=== PATIENT | male | born 1995 | race Caucasian/White ===

== ENCOUNTER 2016-05-08 05:12 | Emergency (ER) | payer SELFPAY ==
[2016-05-08 05:17] VITALS: BMI 26.4
[2016-05-08 05:22] VITALS: BP 108/42; PULSE 71; RESP 20; TEMP 97.6; O2SAT 96
[2016-05-08] MEDS ORDERED: Albuterol-Ipratrop 3 mg / 0.5 (3 ml) UD IH STA (05:23)
--- NOTE | 2016-05-08 05:24 | ED PDOC ---
Arrival/HPI - General Chief Complaint: Chest Pain Time Seen by Provider: 05/08/16 05:13 Historian: Patient - History of Present Illness Narrative History of Present Illness (Text): 05/08/16 05:26 Saeid Spear is a 20 year old male, with a history of asthma, presents to the emergency department for evaluation of chest tightness which is similar in quality to pervious asthmatic symptoms. Notes that symptoms presented earlier today in the middle of the night. Patient ran out of breathing treatments and did not take any as a result. Also reports of mild rhinorrhea and cough. Denies fever, chills, headache, shortness of breath, nausea, vomiting, urinary symptoms or any other complaints at this time. Time/Duration: 4-6 hours Symptom Onset: Gradual Symptom Course: Unchanged Severity Level: Mild Activities at Onset: Light Context: Home Past Medical History - Provider Review Nursing Documentation Reviewed: Yes - Past History Past History: Non-Contributing - Infectious Disease Hx of Infectious Diseases: None - Tetanus Immunization Tetanus Immunization: Unknown - Past Medical History Past Medical History: No Previous - Cardiac Hx Cardiac Disorders: No - Pulmonary Hx Asthma: Yes - Endocrine/Metabolic Hx Endocrine Disorders: No - Gastrointestinal Hx Gastrointestinal Disorders: No - Psychiatric Hx Depression: No Hx Emotional Abuse: No Hx Physical Abuse: No Hx Substance Use: Yes (daily) - Past Surgical History Past Surgical History: No Previous - Anesthesia Hx Anesthesia: Yes Hx Anesthesia Reactions: No Hx Malignant Hyperthermia: No - Suicidal Assessment Feels Threatened In Home Enviroment: No Family/Social History - Physician Review Nursing Documentation Reviewed: Yes Family/Social History: No Known Family HX Smoking Status: Heavy Smoker > 10 Cigarettes Daily Hx Alcohol Use: Yes Frequency of alcohol use: Socially Hx Substance Use: Yes (daily) Substance used: marijuana Allergies/Home Meds Allergies/Adverse Reactions: Allergies No Known Allergies Allergy (Verified 09/13/15 16:54) Review of Systems - Physician Review All systems were reviewed & negative as marked: Yes - Review of Systems Constitutional: Normal. absent: Fatigue, Fevers Respiratory: Cough. absent: SOB, Sputum Cardiovascular: Chest Pain (chest tightness ) Gastrointestinal: Normal. absent: Abdominal Pain, Diarrhea, Nausea, Vomiting Neurological: Normal. absent: Headache, Dizziness Psychiatric: Normal Physical Exam - Physical Exam Narrative Physical Exam (Text): Constitutional: No acute distress. Head: Normocephalic. Atraumatic. Eyes: PERRL. ENT: Moist mucous membranes. Neck: Supple. Cardiovascular: Regular rate. Chest: No tenderness. Respiratory: Wheezing diffusely. No crackles or ronchi. No focal findings. GI: Soft. Nontender. Nondistended. Back: No CVA tenderness. Musculoskeletal: No tenderness or swelling of extremities. Skin: No rash. Neurologic: Alert, no focal deficit. Vital Signs Reviewed: Yes Vital Signs Temp Pulse Resp BP Pulse Ox 05/08/16 05:21 97.6 F 71 20 108/42 L 96 Temperature: Afebrile Blood Pressure: Normal Pulse: Regular Respiratory Rate: Normal Appearance: Positive for: Well-Appearing, Non-Toxic, Comfortable Pain Distress: None Mental Status: Positive for: Alert and Oriented X 3 Medical Decision Making ED Course and Treatment: 05/08/16 05:32 Impression: A 20 year old male presents to emergency department for evaluation of chest tightness which is similar in quality to asthmatic symptoms. Plan: -- Duoneb -- Prednisone -- Reassess and disposition Progress Notes: 05/08/16 05:33 Patient states that breathing has improved markedly post treatment. Patient is stable for discharge home. Advised to present back to emergency department for worsening symptoms and follow up with PMD with in few days. - Medication Orders Current Medication Orders: Discontinued Medications Albuterol/Ipratropium (Duoneb 3 Mg/0.5 Mg (3 Ml) Ud) 3 ml IH STAT STA Stop: 05/08/16 05:24 Last Admin: 05/08/16 05:26 Dose: 3 ML Prednisone (Prednisone Tab) 60 mg PO STAT ONE Stop: 05/08/16 05:24 Last Admin: 05/08/16 05:38 Dose: 60 MG - Scribe Statement The provider has reviewed the documentation as recorded by the Sherice Hays Provider Attestation: All medical record entries made by the Sherice were at my direction and personally dictated by me. I have reviewed the chart and agree that the record accurately reflects my personal performance of the history, physical exam, medical decision making, and the department course for this patient. I have also personally directed, reviewed, and agree with the discharge instructions and disposition. Disposition/Present on Arrival - Present on Arrival Any Indicators Present on Arrival: No History of DVT/PE: No History of Uncontrolled Diabetes: No Urinary Catheter: No History of Decub. Ulcer: No History Surgical Site Infection Following: None - Disposition Have Diagnosis and Disposition been Completed?: Yes Diagnosis: Asthma Disposition: HOME/ ROUTINE Disposition Time: 05:24 Patient Plan: Discharge Condition: STABLE Discharge Instructions (ExitCare): Asthma (ED) Prescriptions: Albuterol 0.083% [Albuterol Sulfate 3 Ml] 3 ml IH Q4 #150 neb Prednisone [Deltasone] 3 tab PO DAILY #12 tablet Albuterol HFA [Ventolin HFA 90 mcg/actuation (8 g)] 2 puff IH Q6 #1 inhaler Forms: WORK NOTE
--- NOTE | 2016-05-08 14:18 | CARD ---
APPROVED REPORT EKG Measurement Heart [id number] <Conclusion> Sinus bradycardia Otherwise normal ECG
== END 2016-05-08 05:39 | disposition home or self-care (01) ==
LOC: ED 05:12
DX: J45.909 Unspecified asthma, uncomplicated (principal); F17.210 Nicotine dependence, cigarettes, uncomplicated

== ENCOUNTER 2016-06-07 23:20 | Emergency (ER) | payer SELFPAY ==
[2016-06-07 23:34] VITALS: BMI 25.7
[2016-06-07 23:36] VITALS: TEMP 99
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
[2016-06-08 00:53] VITALS: BP 122/68; PULSE 78; RESP 18; O2SAT 95
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
== END 2016-06-08 01:00 | disposition home or self-care (01) ==
LOC: ED 23:20
DX: S63.612A Unspecified sprain of right middle finger, initial encounter (principal); X58.XXXA Exposure to other specified factors, initial encounter; Y93.67 Activity, basketball

== ENCOUNTER 2016-09-03 22:12 | Emergency (ER) | payer SELFPAY ==
[2016-09-03 22:12] VITALS: BMI 25.7
[2016-09-03 22:36] VITALS: BP 127/52; PULSE 65; RESP 18; TEMP 100; O2SAT 96
[2016-09-03] MEDS ORDERED: TDAP Vaccine 0.5 mL Syr IM ONE (22:58)
[2016-09-03] MEDS ORDERED: Bacitracin 500 Units/gm Oint Foilpak UD TOP ONE (22:58)
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
== END 2016-09-04 01:09 | disposition home or self-care (01) ==
LOC: ED 22:12
DX: S00.83XA Contusion of other part of head, initial encounter (principal); S50.01XA Contusion of right elbow, initial encounter; Y08.89XA Assault by other specified means, initial encounter; Y93.01 Activity, walking, marching and hiking; Y92.488 Other paved roadways as the place of occurrence of the external cause; Z23 Encounter for immunization

== ENCOUNTER 2016-11-28 03:29 | Observation (INO) | payer SELFPAY ==
[2016-11-28 03:38] VITALS: TEMP 98.2
[2016-11-28] MEDS ORDERED: Sodium Chloride 0.9% 1,000 ML IV STA (03:48)
--- NOTE | 2016-11-28 03:52 | ED PDOC ---
Arrival/HPI - General Chief Complaint: Abdominal Pain Time Seen by Provider: 11/28/16 03:31 Historian: Patient - History of Present Illness Narrative History of Present Illness (Text): 11/28/16 03:48 Saeid Spear is a 21 year old male, whose past medical history includes asthma, who presents to the Emergency department complaining of chest pain since yesterday evening. Patient states chest pain is worse with deep inspiration. Patient also complaining of lower abdominal pain. Patient denies any fever, chills, shortness of breath, nausea, vomiting, diarrhea, urinary symptoms, back pain, neck pain, headache, dizziness, or any other complaints. Time/Duration: Other (yesterday evening) Symptom Onset: Gradual Symptom Course: Unchanged Activities at Onset: Light Context: Home Past Medical History - Provider Review Nursing Documentation Reviewed: Yes - Past History Past History: Non-Contributing - Infectious Disease Hx of Infectious Diseases: None - Tetanus Immunization Tetanus Immunization: Unknown - Past Medical History Past Medical History: No Previous - Cardiac Hx Cardiac Disorders: No - Pulmonary Hx Respiratory Disorders: Yes Hx Asthma: Yes - Neurological Hx Neurological Disorder: No - HEENT Hx HEENT Disorder: No - Renal Hx Renal Disorder: No - Endocrine/Metabolic Hx Endocrine Disorders: No - Hematological/Oncological Hx Blood Disorders: No - Integumentary Hx Dermatological Disorder: No - Musculoskeletal/Rheumatological Hx Musculoskeletal Disorders: No - Gastrointestinal Hx Gastrointestinal Disorders: No - Genitourinary/Gynecological Hx Genitourinary Disorders: No - Psychiatric Hx Psychophysiologic Disorder: No Hx Substance Use: Yes - Past Surgical History Past Surgical History: No Previous - Anesthesia Hx Anesthesia: Yes Hx Anesthesia Reactions: No Hx Malignant Hyperthermia: No - Suicidal Assessment Feels Threatened In Home Enviroment: No Family/Social History - Physician Review Nursing Documentation Reviewed: Yes Family/Social History: Unknown Family HX Smoking Status: Heavy Smoker > 10 Cigarettes Daily Hx Alcohol Use: Yes Hx Substance Use: Yes Substance used: marijuana Allergies/Home Meds Allergies/Adverse Reactions: Allergies No Known Allergies Allergy (Verified 11/28/16 03:38) Home Medications: Home Meds Medication Instructions Recorded Confirmed Albuterol HFA [Ventolin HFA 90 2 puff IH Q6 PRN 11/28/16 11/28/16 mcg/actuation (8 g)] Review of Systems - Physician Review All systems were reviewed & negative as marked: Yes - Review of Systems Constitutional: Normal. absent: Fevers Eyes: Normal ENT: Normal Respiratory: Normal. absent: SOB, Cough Cardiovascular: Chest Pain Gastrointestinal: Abdominal Pain. absent: Diarrhea, Nausea, Vomiting Genitourinary Male: Normal. absent: Dysuria, Frequency, Hematuria, Urinary Output Changes Musculoskeletal: Normal. absent: Back Pain, Neck Pain Skin: Normal. absent: Rash Neurological: Normal. absent: Headache, Dizziness Endocrine: Normal Hemo/Lymphatic: Normal Psychiatric: Normal Physical Exam Vital Signs Reviewed: Yes Vital Signs Temp Pulse Resp BP Pulse Ox 11/28/16 08:00 41 L 18 117/51 L 99 11/28/16 06:51 40 L 17 98/60 L 100 11/28/16 05:37 37 L 16 86/37 L 99 11/28/16 03:35 98.2 F 49 L 23 113/66 97 Temperature: Afebrile Blood Pressure: Normal Pulse: Regular Respiratory Rate: Normal Appearance: Positive for: Well-Appearing, Non-Toxic, Comfortable Pain Distress: None Mental Status: Positive for: Alert and Oriented X 3 - Systems Exam Head: Present: Atraumatic, Normocephalic Pupils: Present: PERRL Extroacular Muscles: Present: EOMI Conjunctiva: Present: Normal Mouth: Present: Moist Mucous Membranes Neck: Present: Normal Range of Motion Respiratory/Chest: Present: Clear to Auscultation, Good Air Exchange. No: Respiratory Distress, Accessory Muscle Use Cardiovascular: Present: Regular Rate and Rhythm, Normal S1, S2. No: Murmurs Abdomen: Present: Normal Bowel Sounds. No: Tenderness, Distention, Peritoneal Signs Back: Present: Normal Inspection Upper Extremity: Present: Normal Inspection. No: Cyanosis, Edema Lower Extremity: Present: Normal Inspection. No: Edema Neurological: Present: GCS=15, CN II-XII Intact, Speech Normal Skin: Present: Warm, Dry, Normal Color. No: Rashes Psychiatric: Present: Alert, Oriented x 3, Normal Insight, Normal Concentration Medical Decision Making ED Course and Treatment: 11/28/16 03:48 Impression: 21 year old male complaining of chest pain and lower abdominal pain. Plan: -- CT Abdomen and Pelvis w/o contrast -- EKG -- CXR -- Labs, cardiac enzymes, amylase, lipase -- Urinalysis, urine drug screen -- IV fluids -- Reassess and disposition Progress Notes: Reviewed EKG, sinus bradycardia at 47 bpm. Sinus arrhythmia. No acute changes. Reviewed radiology, CXR shows no acute processes. 11/28/16 06:[address] scans, CT Chest shows: Normal chest CT with IV contrast. CT Abdomen and Pelvis shows: No acute inflammatory/infectious process identified in the abdomen or pelvis. No evidence of bowel obstruction. Minimal fluid in the pelvis. case discussed with dr janet ahn accepts case for remote tele 12/01/16 20:12 12/01/16 20:12 - Lab Interpretations Lab Results: 11/28/16 04:00 11/28/16 04:00 Lab Results 11/28/16 04:00: Urine Opiates Screen Negative, Urine Methadone Screen Negative, Ur Barbiturates Screen Negative, Ur Phencyclidine Scrn Negative, Ur Amphetamines Screen Negative, U Benzodiazepines Scrn Negative, U Oth Cocaine Metabols Negative, U Cannabinoids Screen Positive H 11/28/16 04:00: Sodium 143, Potassium 4.5, Chloride 110 H, Carbon Dioxide 27, Anion Gap 11, BUN 11, Creatinine 1.2, Est GFR ( Amer) > 60, Est GFR (Non- Af Amer) > 60, Random Glucose 94, Calcium 8.8, Total Bilirubin 0.9, AST 32, ALT 32, Alkaline Phosphatase 84, Lactate Dehydrogenase 433, Total Creatine Kinase 301 H, CK-MB (CK-2) 1.7, CK-MB (CK-2) % Cancelled, Troponin I < 0.01, Total Protein 6.3, Albumin 4.0, Globulin 2.3, Albumin/Globulin Ratio 1.7, Amylase 147 H, Lipase 868 H 11/28/16 04:00: Urine Color Yellow, Urine Appearance Sl cloudy, Urine pH 6.0, Ur Specific [place] 1.025, Urine Protein Trace H, Urine Glucose (UA) Negative, Urine Ketones Trace H, Urine Blood Negative, Urine Nitrate Negative, Urine Bilirubin Negative, Urine Urobilinogen 1.0 H, Ur Leukocyte Esterase Negative, Urine RBC 0 - 2, Urine WBC 0 - 2, Ur Epithelial Cells 0 - 2, Urine Bacteria Occ 11/28/16 04:00: WBC 6.3, RBC 4.52, Hgb 14.3, Hct 42.3, MCV 93.6, MCH 31.6, MCHC 33.8, RDW 14.5, Plt Count 162, MPV 9.9, Gran % 60.1, Lymph % (Auto) 31.2, [place] % (Auto) 6.2 H, Eos % (Auto) 2.2, Baso % (Auto) 0.3, Gran # 3.80, Lymph # 2.0, [place] # 0.4, Eos # 0.1, Baso # 0.02 I have reviewed the lab results: Yes - RAD Interpretation Narrative RAD Interpretations (Text): CT Chest shows: Lungs: There is no pneumonia or mass. The trachea and major bronchi are unremarkable. Pleura: No pleural effusion. No pneumothorax. Heart: Heart size is normal. There is no pericardial effusion. Lynnette and mediastinum: There is no mass or adenopathy. Pulmonary vasculature: Unremarkable. No obvious pulmonary embolism. Thoracic aorta/vascular: No thoracic aortic aneurysm or dissection. The imaged portions of the brachiocephalic arteries are unremarkable. Imaged upper abdomen: See accompanying abdomen pelvis CT report. Musculoskeletal system: Unremarkable Chest/body wall soft tissues: Unremarkable Thyroid: Unremarkable IMPRESSION: Normal chest CT with IV contrast. CT Abdomen and Pelvis shows: LOWER THORAX: See accompanying chest CT report. ABDOMEN: LIVER: Unremarkable. No mass or other parenchymal abnormality. GALLBLADDER AND BILE DUCTS: Unremarkable. No calcified stones. No intra- or extrahepatic biliary dilation. PANCREAS: Unremarkable. No mass. No ductal dilation. SPLEEN: Unremarkable. No splenomegaly. ADRENALS: Unremarkable. No mass. KIDNEYS AND URETERS: Unremarkable. No hydroureteronephrosis. No solid mass or cyst. No urinary tract calculi. STOMACH AND BOWEL: Unremarkable. No obstruction. No wall thickening. APPENDIX: Normal, no findings to suggest acute appendicitis. PELVIS: BLADDER: Unremarkable. No obvious mass. REPRODUCTIVE: Unremarkable as visualized. ABDOMEN and PELVIS: INTRAPERITONEAL SPACE: There is minimal nonspecific fluid in the pelvis. There is otherwise no ascites. No abscess. No pneumoperitoneum. BONES/JOINTS: Unremarkable. SOFT TISSUES: Unremarkable. VASCULATURE: Unremarkable. No abdominal aortic aneurysm or dissection. LYMPH NODES: Unremarkable. No pathologically enlarged lymph nodes. IMPRESSION: No acute inflammatory/infectious process identified in the abdomen or pelvis. No evidence of bowel obstruction. Minimal fluid in the pelvis. Radiology Orders: 11/28/16 03:50 CHEST TWO VIEWS (PA/LAT) [RAD] Stat 11/28/16 04:24 CHEST,ABD,PEL W/IV CONT ONLY [CT] Stat Licensed Mortician: ED Physician, Radiologist - EKG Interpretation Interpreted by ED Physician: Yes Type: 12 lead EKG - Medication Orders Current Medication Orders: Discontinued Medications Albuterol (Ventolin Hfa 90 Mcg/Actuation (8 G)) 2 puff IH Q6 PRN PRN Reason: Shortness of Breath Albuterol Sulfate (Albuterol 0.083% Inhal Ni (2.5 Mg/3 Ml) Ud) 2.5 mg IH [id number] PRN PRN Reason: SHORTNESS OF BREATH Sodium Chloride (Sodium Chloride 0.9%) 1,000 mls @ 100 mls/hr IV .Q10H STA Stop: 11/28/16 13:47 Last Admin: 11/28/16 04:00 Dose: 100 mls/hr eMAR Start Stop Document 11/28/16 04:00 ND (Rec: 11/28/16 04:44 [place] [facility] [id number] Intravenous Solution Start Date 11/28/16 Start Time 04:00 End Date 11/28/16 End time 05:45 Total Infusion Time 105 Sodium Chloride (Sodium Chloride 0.9%) 1,000 mls @ 1,000 mls/hr IV .Q1H MEL Last Admin: 11/28/16 05:59 Dose: 1,000 mls/hr eMAR Start Stop Document 11/28/16 05:59 ND (Rec: 11/28/16 05:59 ND [facility] [id number] Intravenous Solution Start Date 11/28/16 Start Time 05:59 End Date 11/28/16 End time 06:59 Total Infusion Time 60 Lactated Ringer's (Lactated Ringer's) 1,000 mls @ 250 mls/hr IV .Q4H MEL Last Admin: 11/28/16 10:28 Dose: 250 mls/hr eMAR Start Stop Document 11/28/16 10:28 RV (Rec: 11/28/16 10:28 RV [id number]) Intravenous Solution Start Date 11/28/16 Start Time 08:00 Nicotine (Nicoderm Cq) 1 patch TD DAILY MEL Last Admin: 11/28/16 10:28 Dose: Not Given Non-Admin Reason: Patient Refused MAR Transdermal Patch Site Document 11/28/16 10:28 RV (Rec: 11/28/16 10:28 RV [id number]) Transdermal Patch Site Transdermal Patch Site Right Shoulder - Scribe Statement The provider has reviewed the documentation as recorded by the Scribscarlet Mccoy All medical record entries made by the Scribe were at my direction and personally dictated by me. I have reviewed the chart and agree that the record accurately reflects my personal performance of the history, physical exam, medical decision making, and the department course for this patient. I have also personally directed, reviewed, and agree with the discharge instructions and disposition. Disposition/Present on Arrival - Present on Arrival Any Indicators Present on Arrival: No History of DVT/PE: No History of Uncontrolled Diabetes: No Urinary Catheter: No History of Decub. Ulcer: No History Surgical Site Infection Following: None - Disposition Have Diagnosis and Disposition been Completed?: Yes Diagnosis: Pancreatitis, Bradycardia Disposition: HOSPITALIZED Disposition Time: 07:20 Condition: GOOD
[2016-11-28 04:15] LABS: BASO # 0.02 K/mm3 (0.0-2.0); BASO % 0.3 % (0.0-3.0); EOS # 0.1 (0.0-0.7); EOS % 2.2 % (1.5-5.0); GRAN # 3.8 (1.4-6.5); GRAN % 60.1 % (50.0-68.0); HEMATOCRIT 42.3 % (42.0-52.0); LYMPH % 31.2 % (22.0-35.0); MEAN CELL VOLUME 93.6 fl (80.0-105.0); MEAN CORPUSCULAR HEMOGLOBIN 31.6 pg (25.0-35.0); MEAN CORPUSCULAR HGB CONC 33.8 g/dl (31.0-37.0); MEAN PLATELET VOLUME 9.9 fl (7.0-11.0); MONO # 0.4 (0.1-0.6); MONO % 6.2 % (1.0-6.0); RED CELL DISTRIBUTION WIDTH 14.5 % (11.5-14.5); WHITE BLOOD COUNT 6.3 10^3/ul (4.5-11.0)
[2016-11-28 04:25] LABS: ALB/GLOB RATIO 1.7 (1.1-1.8); ALKALINE PHOSPHATASE 84 U/L (38-126); ALT/SGPT 32 U/L (7-56); AMYLASE 147 U/L (35-125); AST/SGOT 32 U/L (17-59); BILIRUBIN,TOTAL 0.9 mg/dL (0.2-1.3); BLOOD UREA NITROGEN 11 mg/dL (7-21); CALCIUM 8.8 mg/dL (8.4-10.5); CARBON DIOXIDE 27 mmol/L (21-33); CHLORIDE 110 mmol/L (98-107); GFR AFRICAN-AMERICAN > 60; GLUCOSE,RANDOM 94 mg/dL (70-110); LIPASE 868 U/L (23-300); POTASSIUM 4.5 mmol/L (3.6-5.0); SODIUM 143 mmol/L (132-148); TOTAL PROTEIN 6.3 g/dL (5.8-8.3)
[2016-11-28 04:32] LABS: URINE BILIRUBIN NEGATIVE (NEGATIVE); URINE BLOOD NEGATIVE (NEGATIVE); URINE GLUCOSE (UA) NEGATIVE (NEGATIVE); URINE KETONE TRACE mg/dL (NEGATIVE); URINE LEUKOCYTE ESTERASE NEGATIVE Leu/uL (NEGATIVE); URINE PROTEIN TRACE mg/dL (<30 mg/dL)
[2016-11-28 04:41] LABS: TROPONIN I < 0.01 ng/mL
[2016-11-28] MEDS ORDERED: Iohexol 350 MG/100 ML VIAL ONE (04:44)
[2016-11-28 04:52] LABS: URINE APPEARANCE SL CLOUDY (CLEAR); URINE COLOR YELLOW (YELLOW)
[2016-11-28 04:55] LABS: URINE EPITHELIAL CELLS 0 - 2 /hpf (0-5); URINE RBC 0 - 2 /hpf (0-2); URINE WBC 0 - 2 /hpf (0-6)
[2016-11-28 04:56] LABS: URINE BACTERIA OCC (NEG)
[2016-11-28] MEDS ORDERED: Sodium Chloride 0.9% 1,000 ML IV SCH (06:00)
[2016-11-28] MEDS ORDERED: Albuterol HFA 90 mcg/actuation (8 g) IH PRN (07:19)
[2016-11-28] MEDS ORDERED: Lactated Ringer's 1,000 ML IV SCH (07:30)
[2016-11-28] MEDS ORDERED: Albuterol 0.083% Inhal Sol (2.5 mg/3 mL) UD IH PRN (07:40)
--- NOTE | 2016-11-28 09:52 | CP.PCM.HP ---
<Gordy Jorgensen - Last Filed: 11/28/16 09:47> History of Present Illness - History of Present Illness History of Present Illness: cc: chest pain HPI: 21yo male with history of asthma presents c/o left-sided chest pain. Patient reported that the chest pain started at 12am and was non-radiating, sharp in nature and 4/10 in severity. Reported that he couldn't sleep as a result and decided to come to the emergency room for evaluation. Reported no alleviating or exaerbating symptoms and stated that the pain subsided quickly. On arrival, EKG revealed sinus bradycardia with no acute ST-T wave changes. On examination, he denied chest pain, palpitations, SOB, abdominal pain, nausea, vomiting, fever, chills, cough, focal weakness, numbness, tingling. 12point ROS as per HPI above, otherwise negative PMH: asthma PSH: denies Allergies: NKDA Social Hx: Admits to marijuana and tobacco use (6-7 cigarettes per day for 8yrs) ; occasional alcohol use with reported last drink one week ago Family Hx: Denies Present on Admission - Present on Admission Any Indicators Present on Admission: No Past Patient History - Infectious Disease Hx of Infectious Diseases: None - Tetanus Immunizations Tetanus Immunization: Unknown - Past Social History Smoking Status: Heavy Smoker > 10 Cigarettes Daily - CARDIAC Hx Cardiac Disorders: No - PULMONARY Hx Respiratory Disorders: Yes Hx Asthma: Yes - NEUROLOGICAL Hx Neurological Disorder: No - HEENT Hx HEENT Problems: No - RENAL Hx Chronic Kidney Disease: No - ENDOCRINE/METABOLIC Hx Endocrine Disorders: No - HEMATOLOGICAL/ONCOLOGICAL Hx Blood Disorders: No - INTEGUMENTARY Hx Dermatological Problems: No - MUSCULOSKELETAL/RHEUMATOLOGICAL Hx Musculoskeletal Disorders: No - GASTROINTESTINAL Hx Gastrointestinal Disorders: No - GENITOURINARY/GYNECOLOGICAL Hx Genitourinary Disorders: No - PSYCHIATRIC Hx Psychophysiologic Disorder: No Hx Substance Use: Yes - SURGICAL HISTORY Hx Surgeries: No - ANESTHESIA Hx Anesthesia: Yes Hx Anesthesia Reactions: No Hx Malignant Hyperthermia: No Meds Allergies/Adverse Reactions: Allergies Allergy/AdvReac Type Severity Reaction Status Date / Time No Known Allergies Allergy Verified 11/28/16 03:38 Physical Exam - Constitutional Appears: Non-toxic, No Acute Distress - Head Exam Head Exam: ATRAUMATIC, NORMAL INSPECTION, NORMOCEPHALIC - Eye Exam Eye Exam: EOMI, PERRL - ENT Exam ENT Exam: Mucous Membranes Moist - Respiratory Exam Respiratory Exam: Clear to Auscultation Bilateral. absent: Rales, Rhonchi, Wheezes - Cardiovascular Exam Cardiovascular Exam: RRR, +S1, +S2. absent: Gallop, JVD, Rubs - GI/Abdominal Exam GI & Abdominal Exam: Normal Bowel Sounds, Soft. absent: Distended, Firm, Guarding, Rebound, Rigid, Tenderness - Extremities Exam Extremities exam: Positive for: normal inspection, pedal pulses present. Negative for: pedal edema, tenderness - Back Exam Back exam: NORMAL INSPECTION - Neurological Exam Neurological exam: Alert, CN II-XII Intact, Oriented x3 - Psychiatric Exam Psychiatric exam: Normal Affect, Normal Mood - Skin Skin Exam: Dry, Intact, Normal Color, Warm Results - Vital Signs Recent Vital Signs: Last Vital Signs Temp 98.2 F 11/28/16 03:35 Pulse 40 L 11/28/16 06:51 Resp 17 11/28/16 06:51 BP 98/60 L 11/28/16 06:51 Pulse Ox 100 11/28/16 06:51 - Labs Result Diagrams: 11/28/16 04:00 11/28/16 04:00 Labs: Laboratory Results - last 24 hr 11/28/16 10:00 Troponin I < 0.01 Assessment & Plan - Assessment and Plan (Free Text) Plan: 21yo male with history of asthma presents c/o chest pain 1. Chest pain 2. Elevated lipase 3. Asthma -EKG reviewed; revealed sinus bradycardia with no acute ST-T wave changes -CT Chest/abdomen/pelvis revealed no acute abnormalities; see official report for further details -Troponin negative x 2 -IVF hydration -Cardiology consulted - Dr. Butterfield -Telemetry monitoring -Continue albuterol for history of asthma Patient seen and case discussed with attending, Dr. Caldwell - Date & Time Date: 11/28/16 Time: 09:53 <Aly Caldwell - Last Filed: 11/28/16 12:50> Results - Vital Signs Recent Vital Signs: Last Vital Signs Temp 98.2 F 11/28/16 11:07 Pulse 40 L 11/28/16 11:07 Resp 18 11/28/16 11:07 BP 117/51 L 11/28/16 11:07 Pulse Ox 99 11/28/16 08:00 - Labs Result Diagrams: 11/28/16 04:00 11/28/16 04:00 Labs: Laboratory Results - last 24 hr 11/28/16 11/28/16 09:20 10:00 Troponin I < 0.01 TSH 3rd Generation 2.22 Attending/Attestation - Attestation I have personally seen and examined this patient.: Yes I have fully participated in the care of the patient.: Yes I have reviewed all pertinent clinical information: Yes Notes (Text): 11/28/16 12:46 Patient was seen and examined . 21 yrs old male with PMH of Asthma is admitted with atypical chest pain, EKG is negative for ischemic changes. 2 set of troponins are normal. Patient is not having any wheezing. Lipase is mildly high but patient is not having any abdominal pain, CT scan of abdomen and pevis is negative for Pancreatitis. Discuss with cardiology Patient does not need any further work up at this time. The issue of smoking and ongoing drug abuse was discussed. Education was provided.
--- NOTE | 2016-11-28 09:57 | CP.PCM.DIS ---
<Gordy Jorgensen - Last Filed: 11/28/16 11:47> Provider - Provider Date of Admission: 11/28/16 06:35 Attending physician: Etienne Valentine MD Consults: Cardiology - Dr. Butterfield Time Spent in preparation of Discharge (in minutes): 25 Hospital Course - Lab Results Lab Results: Most Recent Lab Values WBC 6.3 10^3/ul (4.5-11.0) 11/28/16 04:00 RBC 4.52 10^6/uL (3.5-6.1) 11/28/16 04:00 Hgb 14.3 g/dL (14.0-18.0) 11/28/16 04:00 Hct 42.3 % (42.0-52.0) 11/28/16 04:00 MCV 93.6 fl (80.0-105.0) 11/28/16 04:00 MCH 31.6 pg (25.0-35.0) 11/28/16 04:00 MCHC 33.8 g/dl (31.0-37.0) 11/28/16 04:00 RDW 14.5 % (11.5-14.5) 11/28/16 04:00 Plt Count 162 10^3/uL (120.0-450.0) 11/28/16 04:00 MPV 9.9 fl (7.0-11.0) 11/28/16 04:00 Gran % 60.1 % (50.0-68.0) 11/28/16 04:00 Lymph % (Auto) 31.2 % (22.0-35.0) 11/28/16 04:00 [place] % (Auto) 6.2 % (1.0-6.0) H 11/28/16 04:00 Eos % (Auto) 2.2 % (1.5-5.0) 11/28/16 04:00 Baso % (Auto) 0.3 % (0.0-3.0) 11/28/16 04:00 Gran # 3.80 (1.4-6.5) 11/28/16 04:00 Lymph # 2.0 (1.2-3.4) 11/28/16 04:00 [place] # 0.4 (0.1-0.6) 11/28/16 04:00 Eos # 0.1 (0.0-0.7) 11/28/16 04:00 Baso # 0.02 K/mm3 (0.0-2.0) 11/28/16 04:00 Sodium 143 mmol/L (132-148) 11/28/16 04:00 Potassium 4.5 mmol/L (3.6-5.0) 11/28/16 04:00 Chloride 110 mmol/L (98-107) H 11/28/16 04:00 Carbon Dioxide 27 mmol/L (21-33) 11/28/16 04:00 Anion Gap 11 (10-20) 11/28/16 04:00 BUN 11 mg/dL (7-21) 11/28/16 04:00 Creatinine 1.2 mg/dL (0.8-1.5) 11/28/16 04:00 Est GFR ( Amer) > 60 11/28/16 04:00 Est GFR (Non-Af Amer) > 60 11/28/16 04:00 Random Glucose 94 mg/dL (70-110) 11/28/16 04:00 Calcium 8.8 mg/dL (8.4-10.5) 11/28/16 04:00 Total Bilirubin 0.9 mg/dL (0.2-1.3) 11/28/16 04:00 AST 32 U/L (17-59) 11/28/16 04:00 ALT 32 U/L (7-56) 11/28/16 04:00 Alkaline Phosphatase 84 U/L (38-126) 11/28/16 04:00 Lactate Dehydrogenase 433 U/L (333-699) 11/28/16 04:00 Total Creatine Kinase 301 U/L (35-230) H 11/28/16 04:00 CK-MB (CK-2) 1.7 ng/mL (0.0-3.6) 11/28/16 04:00 CK-MB (CK-2) % Cancelled 11/28/16 04:00 Troponin I < 0.01 ng/mL 11/28/16 10:00 Total Protein 6.3 g/dL (5.8-8.3) 11/28/16 04:00 Albumin 4.0 g/dL (3.0-4.8) 11/28/16 04:00 Globulin 2.3 gm/dL 11/28/16 04:00 Albumin/Globulin Ratio 1.7 (1.1-1.8) 11/28/16 04:00 Amylase 147 U/L (35-125) H 11/28/16 04:00 Lipase 868 U/L (23-300) H 11/28/16 04:00 Urine Color Yellow (YELLOW) 11/28/16 04:00 Urine Appearance Sl cloudy (CLEAR) 11/28/16 04:00 Urine pH 6.0 (4.7-8.0) 11/28/16 04:00 Ur Specific [place] 1.025 (1.005-1.035) 11/28/16 04:00 Urine Protein Trace mg/dL (<30 mg/dL) H 11/28/16 04:00 Urine Glucose (UA) Negative mg/dL (NEGATIVE) 11/28/16 04:00 Urine Ketones Trace mg/dL (NEGATIVE) H 11/28/16 04:00 Urine Blood Negative (NEGATIVE) 11/28/16 04:00 Urine Nitrate Negative (NEGATIVE) 11/28/16 04:00 Urine Bilirubin Negative (NEGATIVE) 11/28/16 04:00 Urine Urobilinogen 1.0 E.U./dL (<1 E.U./dL) H 11/28/16 04:00 Ur Leukocyte Esterase Negative [place]/uL (NEGATIVE) 11/28/16 04:00 Urine RBC 0 - 2 /hpf (0-2) 11/28/16 04:00 Urine WBC 0 - 2 /hpf (0-6) 11/28/16 04:00 Ur Epithelial Cells 0 - 2 /hpf (0-5) 11/28/16 04:00 Urine Bacteria Occ (NEG) 11/28/16 04:00 Urine Opiates Screen Negative (NEGATIVE) 11/28/16 04:00 Urine Methadone Screen Negative (NEGATIVE) 11/28/16 04:00 Ur Barbiturates Screen Negative (NEGATIVE) 11/28/16 04:00 Ur Phencyclidine Scrn Negative (NEGATIVE) 11/28/16 04:00 Ur Amphetamines Screen Negative (NEGATIVE) 11/28/16 04:00 U Benzodiazepines Scrn Negative (NEGATIVE) 11/28/16 04:00 U Oth Cocaine Metabols Negative (NEGATIVE) 11/28/16 04:00 U Cannabinoids Screen Positive (NEGATIVE) H 11/28/16 04:00 - Hospital Course Hospital Course: 21yo male with history of asthma presented c/o left-sided chest pain. Patient reported that the chest pain started at 12am on the day of ER visit and was non- radiating, sharp in nature and 4/10 in severity. Reported that he couldn't sleep as a result and decided to come to the emergency room for evaluation. Reported no alleviating or exaerbating symptoms and stated that the pain subsided quickly. On arrival, EKG revealed sinus bradycardia with no acute ST-T wave changes. Troponin was negative x2. CXR revealed no acute abnormalities. CT chest/abdomen/pelvis also revealed no acute abnormalities. Cardiology was consulted and cleared patient for discharge. Lipase was noted to be elevated however no abdominal pain or findings on CT suggestive of pancreatitis. Patient was nonetheless hydrated with IVF. Reported no abdominal pain and was tolerating PO intake. Patient was subsequently cleared for discharge with instructions to follow up with a primary doctor. - Date & Time of H&P Date of H&P: 11/28/16 Time of H&P: 09:57 Discharge Exam - Head Exam Head Exam: ATRAUMATIC, NORMAL INSPECTION, NORMOCEPHALIC - Eye Exam Eye Exam: EOMI, PERRL - Respiratory Exam Respiratory Exam: Clear to PA & Lateral. absent: Rales, Rhonchi, Wheezes - Cardiovascular Exam Cardiovascular Exam: Bradycardia, +S1, +S2. absent: Gallop, JVD, Rubs, Systolic Murmur - GI/Abdominal Exam GI & Abdominal Exam: Normal Bowel Sounds, Soft. absent: Distended, Firm, Guarding, Rebound, Rigid, Tenderness - Extremities Exam Extremities exam: normal inspection - Neurological Exam Neurological exam: Alert, CN II-XII Intact, Oriented x3 - Psychiatric Exam Psychiatric exam: Normal Affect, Normal Mood - Skin Skin Exam: Dry, Intact, Normal Color, Warm Discharge Plan - Follow Up Plan Condition: GOOD Disposition: HOME/ ROUTINE Instructions: Acute Abdominal Pain (DC) Additional Instructions: 1. Follow up with your PMD within 1 week of discharge 2. Return to the emergency room should you have a worsening of your symptoms/ condition <Aly Caldwell - Last Filed: 11/28/16 12:52> Provider - Provider Date of Admission: 11/28/16 06:35 Attending physician: Etienne Valentine MD Hospital Course - Lab Results Lab Results: Most Recent Lab Values WBC 6.3 10^3/ul (4.5-11.0) 11/28/16 04:00 RBC 4.52 10^6/uL (3.5-6.1) 11/28/16 04:00 Hgb 14.3 g/dL (14.0-18.0) 11/28/16 04:00 Hct 42.3 % (42.0-52.0) 11/28/16 04:00 MCV 93.6 fl (80.0-105.0) 11/28/16 04:00 MCH 31.6 pg (25.0-35.0) 11/28/16 04:00 MCHC 33.8 g/dl (31.0-37.0) 11/28/16 04:00 RDW 14.5 % (11.5-14.5) 11/28/16 04:00 Plt Count 162 10^3/uL (120.0-450.0) 11/28/16 04:00 MPV 9.9 fl (7.0-11.0) 11/28/16 04:00 Gran % 60.1 % (50.0-68.0) 11/28/16 04:00 Lymph % (Auto) 31.2 % (22.0-35.0) 11/28/16 04:00 [place] % (Auto) 6.2 % (1.0-6.0) H 11/28/16 04:00 Eos % (Auto) 2.2 % (1.5-5.0) 11/28/16 04:00 Baso % (Auto) 0.3 % (0.0-3.0) 11/28/16 04:00 Gran # 3.80 (1.4-6.5) 11/28/16 04:00 Lymph # 2.0 (1.2-3.4) 11/28/16 04:00 [place] # 0.4 (0.1-0.6) 11/28/16 04:00 Eos # 0.1 (0.0-0.7) 11/28/16 04:00 Baso # 0.02 K/mm3 (0.0-2.0) 11/28/16 04:00 Sodium 143 mmol/L (132-148) 11/28/16 04:00 Potassium 4.5 mmol/L (3.6-5.0) 11/28/16 04:00 Chloride 110 mmol/L (98-107) H 11/28/16 04:00 Carbon Dioxide 27 mmol/L (21-33) 11/28/16 04:00 Anion Gap 11 (10-20) 11/28/16 04:00 BUN 11 mg/dL (7-21) 11/28/16 04:00 Creatinine 1.2 mg/dL (0.8-1.5) 11/28/16 04:00 Est GFR ( Amer) > 60 11/28/16 04:00 Est GFR (Non-Af Amer) > 60 11/28/16 04:00 Random Glucose 94 mg/dL (70-110) 11/28/16 04:00 Calcium 8.8 mg/dL (8.4-10.5) 11/28/16 04:00 Total Bilirubin 0.9 mg/dL (0.2-1.3) 11/28/16 04:00 AST 32 U/L (17-59) 11/28/16 04:00 ALT 32 U/L (7-56) 11/28/16 04:00 Alkaline Phosphatase 84 U/L (38-126) 11/28/16 04:00 Lactate Dehydrogenase 433 U/L (333-699) 11/28/16 04:00 Total Creatine Kinase 301 U/L (35-230) H 11/28/16 04:00 CK-MB (CK-2) 1.7 ng/mL (0.0-3.6) 11/28/16 04:00 CK-MB (CK-2) % Cancelled 11/28/16 04:00 Troponin I < 0.01 ng/mL 11/28/16 10:00 Total Protein 6.3 g/dL (5.8-8.3) 11/28/16 04:00 Albumin 4.0 g/dL (3.0-4.8) 11/28/16 04:00 Globulin 2.3 gm/dL 11/28/16 04:00 Albumin/Globulin Ratio 1.7 (1.1-1.8) 11/28/16 04:00 Amylase 147 U/L (35-125) H 11/28/16 04:00 Lipase 868 U/L (23-300) H 11/28/16 04:00 TSH 3rd Generation 2.22 mIU/mL (0.46-4.68) 11/28/16 09:20 Urine Color Yellow (YELLOW) 11/28/16 04:00 Urine Appearance Sl cloudy (CLEAR) 11/28/16 04:00 Urine pH 6.0 (4.7-8.0) 11/28/16 04:00 Ur Specific [place] 1.025 (1.005-1.035) 11/28/16 04:00 Urine Protein Trace mg/dL (<30 mg/dL) H 11/28/16 04:00 Urine Glucose (UA) Negative mg/dL (NEGATIVE) 11/28/16 04:00 Urine Ketones Trace mg/dL (NEGATIVE) H 11/28/16 04:00 Urine Blood Negative (NEGATIVE) 11/28/16 04:00 Urine Nitrate Negative (NEGATIVE) 11/28/16 04:00 Urine Bilirubin Negative (NEGATIVE) 11/28/16 04:00 Urine Urobilinogen 1.0 E.U./dL (<1 E.U./dL) H 11/28/16 04:00 Ur Leukocyte Esterase Negative [place]/uL (NEGATIVE) 11/28/16 04:00 Urine RBC 0 - 2 /hpf (0-2) 11/28/16 04:00 Urine WBC 0 - 2 /hpf (0-6) 11/28/16 04:00 Ur Epithelial Cells 0 - 2 /hpf (0-5) 11/28/16 04:00 Urine Bacteria Occ (NEG) 11/28/16 04:00 Urine Opiates Screen Negative (NEGATIVE) 11/28/16 04:00 Urine Methadone Screen Negative (NEGATIVE) 11/28/16 04:00 Ur Barbiturates Screen Negative (NEGATIVE) 11/28/16 04:00 Ur Phencyclidine Scrn Negative (NEGATIVE) 11/28/16 04:00 Ur Amphetamines Screen Negative (NEGATIVE) 11/28/16 04:00 U Benzodiazepines Scrn Negative (NEGATIVE) 11/28/16 04:00 U Oth Cocaine Metabols Negative (NEGATIVE) 11/28/16 04:00 U Cannabinoids Screen Positive (NEGATIVE) H 11/28/16 04:00 Attending/Attestation - Attestation I have personally seen and examined this patient.: Yes I have fully participated in the care of the patient.: Yes I have reviewed all pertinent clinical information, including history, physical exam and plan: Yes Notes (Text): 11/28/16 12:51 Patient was seen and examined . Diagnosis. 1.Atypical chest pain 2.Sinus Bradycardia 21 yrs old male with PMH of Asthma is admitted with atypical chest pain, EKG is negative for ischemic changes. 2 set of troponins are normal. Patient is not having any wheezing. Lipase is mildly high but patient is not having any abdominal pain, CT scan of abdomen and pevis is negative for Pancreatitis. Discuss with cardiology Patient does not need any further work up at this time. The issue of smoking and ongoing drug abuse was discussed. Education was provided.
[2016-11-28 10:05] VITALS: BP 117/51; PULSE 41; RESP 18; O2SAT 99
--- NOTE | 2016-11-28 10:24 | RAD ---
HISTORY: cp COMPARISON: No prior. TECHNIQUE: Chest PA and lateral FINDINGS: LUNGS: No active pulmonary disease. PLEURA: No significant pleural effusion identified. No pneumothorax apparent. CARDIOVASCULAR: Normal. OSSEOUS STRUCTURES: No significant abnormalities. VISUALIZED UPPER ABDOMEN: Normal. OTHER FINDINGS: None. IMPRESSION: No active disease.
--- NOTE | 2016-11-28 11:14 | CT ---
PROCEDURE: CT Chest, Abdomen and Pelvis with intravenous contrast HISTORY: abd pain COMPARISON: None. TECHNIQUE: IV dose administered: 100 cc of Omni 350 Radiation dose: Total exam DLP = 672 mGy-cm. This CT exam was performed using one or more of the following dose reduction techniques: Automated exposure control, adjustment of the mA and/or kV according to patient size, and/or use of iterative reconstruction technique. FINDINGS: CT CHEST WITH CONTRAST: LUNGS: Clear. No nodule, mass or consolidation. MEDIASTINUM: Unremarkable. Normal caliber aorta and pulmonary arterial trunk. No aortic dissection. Normal size heart. LYMPH NODES: Unremarkable. PLEURA: Unremarkable. No pneumothorax. No pleural fluid. BONES: Unremarkable. OTHER FINDINGS: None. CT ABDOMEN AND PELVIS: LIVER: Unremarkable. No gross lesion or ductal dilatation. GALLBLADDER AND BILE DUCTS: Unremarkable. PANCREAS: Unremarkable. No gross lesion or ductal dilatation. SPLEEN: Unremarkable. ADRENALS: Unremarkable. No mass. KIDNEYS AND URETERS: Unremarkable. No hydronephrosis. No solid mass. VASCULATURE: Unremarkable. No aortic aneurysm. BOWEL: Unremarkable. No obstruction. No gross mural thickening. APPENDIX: Normal appendix. PERITONEUM: Unremarkable. No free fluid. No free air. LYMPH NODES: Unremarkable. No enlarged lymph nodes. BLADDER: Unremarkable. REPRODUCTIVE: Unremarkable. BONES: No acute fracture. OTHER FINDINGS: The report concurs with the preliminary [facility] report IMPRESSION: Negative study
[2016-11-28 11:30] VITALS: BMI 25.1
--- NOTE | 2016-11-28 14:35 | CARD ---
APPROVED REPORT EKG Measurement Heart [id number] <Conclusion> Marked sinus bradycardia with sinus arrhythmia Abnormal ECG
[2016-11-29 08:21] LABS: CHOLESTEROL 130 mg/dL (130-200)
--- NOTE | 2016-11-29 10:55 | CON ---
DATE: 11/28/2016 LOCATION: Patient in room 366, bed 1. REASON FOR CONSULTATION: Sharp chest pain. HISTORY OF PRESENT ILLNESS: Patient is a 21-year-old male admitted with episode of sharp left upper chest pain and mostly says when he took a deep breath that is when the sharp pain came. He states that he plays basketball for 2-1/2 to 3 hours every day and also he drives bicycle for 2 hours, and he never gets any chest pain and he has been very active for many years with the sports and exercise, and never had any sort of chest pain on exertion. This chest pain was at rest and it was sharp and was related to deep inspiration. PAST MEDICAL HISTORY: Not significant. PERSONAL HISTORY: Smokes 6 to 7 cigarettes a day and smokes marijuana, occasionally alcohol drink. FAMILY HISTORY: Denies any family history of any disease. MEDICATIONS: Patient denies taking any medications. PAST SURGICAL HISTORY: Denies any surgeries. ALLERGIES: DENIES ANY ALLERGIES. PHYSICAL EXAMINATION: VITAL SIGNS: Blood pressure 117/51, respirations 18, pulse around 50 per minute on my examination at present, patient lying in bed, temperature 98.2. HEENT: Head is normocephalic. Eyes, pupils normal, conjunctivae normal. Nose and throat normal. NECK: JVP low. Carotids equal. THORAX: AP diameter normal. LUNGS: Clear. CARDIOVASCULAR: S1 and S2. CHEST: No local tenderness, and at present, patient is free of chest pain. ABDOMEN: Soft. No tenderness. No organomegaly. Bowel sound normal. EXTREMITIES: No clubbing, no cyanosis. LABORATORY DATA: Sodium 143, potassium 4.5, BUN 11, creatinine 1.2, AST and ALT normal. Troponin x2 negative. Amylase 147, lipase 868. TSH 2.22. Total protein and albumin normal. Chest x-ray, clear. EKG showed sinus bradycardia, over [address] of chest, abdomen, and pelvis IV contrast and was negative. DIAGNOSES: Chest pain, sharp pain with inspiration at rest which cleared on its own. PLAN: Patient does have 2-1/2 to 3 hours of playing basket ball and does drive bicycle for 2 hours everyday, so his heart rate is low might be due to his conditioning and he had no symptoms of any dizziness or any exertional chest pain. However, patient wants to go home. He was offered stress test and echocardiogram, but he says "I will consider when I go home, and if I want to do it, I will make appointment." He was also instructed to see his family physician in 1 week time. He was also instructed if he gets any symptom of chest pain, shortness of breath, dizziness, palpitations or any other symptoms, to come back to emergency room right away. Aly Butterfield MD
== END 2016-11-28 13:43 | disposition home or self-care (01) ==
LOC: ED 03:29 → OBSVTOIN 06:35 → ERH 06:35 → INTOOBSV 06:35 → ERH 07:26 → 3RNO 08:28
PROVIDERS: ADMIT Hospitalist; ATTEND Hospitalist
DX: R07.89 Other chest pain (principal); R00.1 Bradycardia, unspecified; J45.909 Unspecified asthma, uncomplicated; F17.210 Nicotine dependence, cigarettes, uncomplicated; F12.90 Cannabis use, unspecified, uncomplicated; R40.2412 Glasgow coma scale score 13-15, at arrival to emergency department
CPT/HCPCS: 71020; 71260; 74177; 80053; 80061; 81001; 82150; 82550; 82553; 83036; 83615; 83690; 84443; 84484; 85025; 93005; 96360; 96361; 99285; G0378; G0480; J7040; J7120; Q9967